=== PATIENT | female | born 1935 | race Caucasian/White ===

== ENCOUNTER → 2023-10-12 09:25 | Outpatient (REF) | payer OTHER, SELFPAY | LOC: WDC 09:25 | PROVIDERS: ATTENDING PHYSICIAN Family Medicine | DX: N63.41 Unspecified lump in right breast, subareolar (principal); N64.4 Mastodynia | CPT/HCPCS: 76642; 77062; 77066 ==

== ENCOUNTER → 2023-10-21 11:55 | Outpatient (REF) | payer OTHER, SELFPAY ==
--- NOTE | 2023-10-21 14:24 | OID.BR.INTR ---
[facility] Breast Navigator - Initial
- -
Date of Contact: 10/21/23
Met with patient. Patient given written information on navigator services and support services available at [facility]. Will follow up as needed per protocol.
== END ==
LOC: WDC 11:55
PROVIDERS: ATTENDING PHYSICIAN Family Medicine
DX: N63.20 Unspecified lump in the left breast, unspecified quadrant (principal); N63.21 Unspecified lump in the left breast, upper outer quadrant
CPT/HCPCS: 88305; 19083; 77065; A4648

== ENCOUNTER → 2024-05-03 13:49 | Outpatient (REF) | payer OTHER, SELFPAY | LOC: WDC 13:49 | PROVIDERS: ATTENDING PHYSICIAN Family Medicine | DX: R92.8 Other abnormal and inconclusive findings on diagnostic imaging of breast (principal) | CPT/HCPCS: 76642 ==

== ENCOUNTER 2024-07-28 21:10 | Emergency (ER) | payer OTHER, SELFPAY ==
--- NOTE | 2024-07-28 21:37 | ED.GENMED ---
ED Provider Triage
<Nick Rivera Jr., PA-C - Last Filed: 07/29/24 15:36>
-
Patient seen by provider in Triage?: Seen in Triage
Attestation: A medical screening examination has been initiated by a qualified medical provider. Based on the assessment performed at this time, it has been determined that an emergent medical condition may exist and the patient has been informed
that further medical evaluation and possible additional diagnostic testing may be needed.
HPI: 89-year-old female presenting to the emergency department with concerns of abrupt onset of nausea and vomiting prior to arrival. No specific diarrhea no additional specific symptoms otherwise. Feeling somewhat lethargic and weak at home as
well. Started over the past hour or so.
GENERAL: Alert , in no apparent distress
EYE: No visual abnormalities.
NECK: Trachea midline
ENT: No visible abnormalities.
LUNGS: No acute respiratory distress
NEUROLOGICAL: Alert and oriented
SKIN: Skin intact. No visible changes.
MUSCULOSKELETAL: Moving extremities normally
PSYCH: Normal and appropriate interaction.
This is a medical evaluation conducted in person to initiate diagnostic evaluation and provide initial therapeutics. Please see further documentation by the treating clinician.
History of Present Illness
<Nick Rivera Jr., PA-C - Last Filed: 07/29/24 15:36>
General
Chief Complaint: Dizziness
Time Seen by Provider: 07/29/24 00:56
<Caitlin Pate MD - Last Filed: 07/31/24 09:09>
General
Source: patient and spouse
History of Present Illness
History of Present Illness:
This patient is an 89-year-old female who says around 5 PM tonight she felt tired so she went to bed. She slept for bed and then got up approximately 8:30 PM to go to the bathroom noticed that the room was 'swimming' associated with several
episodes of nausea and vomiting. She called for her who in turn called for EMS. Symptoms lasted about 30 minutes and then resolved completely. Patient states she feels 'a lot better' now. She denies having any numbness, tingling, focal
weakness, double vision or change in vision, change in speech or aphasia, chest pain, shortness of breath, neck pain, headache, back pain, or other complaints. She is unclear if her symptoms were positional earlier today.
Past History
<Nick Rivera Jr., PA-C - Last Filed: 07/29/24 15:36>
Past History
ED Past Medical History: Other (Arthritis)
ED Past Surgical History: , Tonsilectomy and Other (Cataract surgery)
Social History
Tobacco: Non-smoker
<Caitlin Pate MD - Last Filed: 07/31/24 09:09>
Social History
Alcohol: None
Drug: None
Personal:
Living: with family
Phy Exam
<Caitlin Pate MD - Last Filed: 07/31/24 09:09>
Physical Exam
Physical Exam:
GENERAL: Alert , in no apparent distress
EYE: pupils equal and reactive, no photophobia, no nystagmus, EOMI
NECK: Supple, no significant adenopathy.
ENT: o/p clr, mmm.
CARDIAC: Regular rate and rhythm .
LUNGS: Clear breath sounds bilaterally, no acute respiratory distress, no wheezes/rales/rhonchi
ABDOMEN: Soft, without focal tenderness, no r/g, no cvat
NEUROLOGICAL: Alert and oriented, no focal neuro deficits, gait normal in ER, no truncal ataxia, normal Romberg, visual redman intact, [id number] normal, motor 5 out of 5, sensory intact, cranial nerves II through XII intact
SKIN: Warm and dry, skin intact.
MUSCULOSKELETAL: No edema, well perfused.
PSYCH: Normal and appropriate interaction.
Course
<Nick Rivera Jr., PA-C - Last Filed: 07/29/24 15:36>
Orders/Labs/Results
Orders:
Orders
07/28/24 21:37
Electrocardiogram (*1) Stat
Reason for Study: Abdominal Pain
EKG- Treatment ONCE
07/28/24 21:47
Complete Blood Count/With Diff Urgent
Comprehensive Metabolic Panel Urgent
Lipase Urgent
07/29/24 01:13
CT Head W/o Iv Contrast Urgent
Comment:
Reason For Exam: dizzy
Abnormal Lab Results
07/28/24
21:47
MCHC 32.9 L g/dL
(33.0-37.0)
Absolute Neuts (auto) 8.0 H 10^3/uL
(1.4-6.5)
Absolute Lymphs (auto) 0.9 L 10^3/uL
(1.2-3.4)
Neutrophils % 81.8 H %
(42.2-75.2)
Lymphocytes % 9.4 L %
(20.5-51.1)
BUN 18 H mg/dl
(7-17)
Glucose 179 H mg/dl
(70-99)
07/28/24 21:47
07/28/24 21:47
Vital Signs
Initial and Last Documented VS:
Initial Vital Signs
Temp Pulse Resp BP Pulse Ox
97.5 F 91 18 173/88 99
07/28/24 21:41 07/28/24 21:41 07/28/24 21:41 07/28/24 21:41 07/28/24 21:41
Last Documented Vital Signs
Temp Pulse Resp BP Pulse Ox
97.5 F 53 18 152/71 99
07/28/24 21:41 07/29/24 03:54 07/29/24 03:54 07/29/24 03:54 07/29/24 03:54
<Caitlin Pate MD - Last Filed: 07/31/24 09:09>
Orders/Labs/Results
Orders:
Orders
07/28/24 21:37
Electrocardiogram (*1) Stat
Reason for Study: Abdominal Pain
EKG- Treatment ONCE
07/28/24 21:47
Complete Blood Count/With Diff Urgent
Comprehensive Metabolic Panel Urgent
Lipase Urgent
07/29/24 01:13
CT Head W/o Iv Contrast Urgent
Comment:
Reason For Exam: dizzy
Abnormal Lab Results
07/28/24
21:47
MCHC 32.9 L g/dL
(33.0-37.0)
Absolute Neuts (auto) 8.0 H 10^3/uL
(1.4-6.5)
Absolute Lymphs (auto) 0.9 L 10^3/uL
(1.2-3.4)
Neutrophils % 81.8 H %
(42.2-75.2)
Lymphocytes % 9.4 L %
(20.5-51.1)
BUN 18 H mg/dl
(7-17)
Glucose 179 H mg/dl
(70-99)
07/28/24 21:47
07/28/24 21:47
Vital Signs
Initial and Last Documented VS:
Initial Vital Signs
Temp Pulse Resp BP Pulse Ox
97.5 F 91 18 173/88 99
07/28/24 21:41 07/28/24 21:41 07/28/24 21:41 07/28/24 21:41 07/28/24 21:41
Last Documented Vital Signs
Temp Pulse Resp BP Pulse Ox
97.5 F 53 18 152/71 99
07/28/24 21:41 07/29/24 03:54 07/29/24 03:54 07/29/24 03:54 07/29/24 03:54
<Caitlin Pate MD - Last Filed: 07/31/24 09:09>
*Critical Care Note
Total Time (30-74mins, 75-104mins- exclusive of procedures): Not Applicable
<Caitlin Pate MD - Last Filed: 07/31/24 09:09>
Update Note
Update Note:
Patient presents to the Emergency Department with dizziness nausea and vomiting
Number and Complexity of Problems Addressed at the Encounter
� Chronic conditions affecting care:
� Acute Exacerbation and/or Progression of Chronic Illness:
� Differential Diagnosis includes: But not limited to peripheral vertigo, central vertigo, electrolyte disorder, etc. etc.
Amount and/or Complexity of Data to be Reviewed and Analyzed
� I performed an independent evaluation of and my interpretation is:
EKG:read by me, sinus bradycardia, no acute ischemia
CT:read by vision, nad
Xrays:
Laboratory Studies:unremkarable
Other:
� Review of other/old records reveals:
� Clinical information was obtained by an independent historian:
� Prescriptions/Medications Considered but not given:
� Further testing considered but not performed:
Risk of Complications and/or Morbidity or Mortality of Patient Management
� Social determinants of health affecting care:
� Discussion with other providers (PCP, Hospitalists, Consultants, etc):
� Escalation of care including admission/observation vs risk of discharge considered: sxs very c/w episode of vertigo. No 'red flag' findings ot suggest central etiology...no focal neuro findings, no nystagmus (vertical or
otherwise), no dysmetria/diploplia etc etc. Recommend pt get close outpt f/u, and d/w them import of f/u and reasons to rted. Asx at this time.
ED Attending Note
<Nick Rivera Jr., PA-C - Last Filed: 07/29/24 15:36>
-
Portions of this chart may have been created with voice recognition software.� Occasional wrong word or��sound alike� substitutions may have occurred due to the inherent limitations of voice recognition software.
Discharge Plan
Departure
Patient Disposition: Home (Routine Discharge)
Date of Disposition: 07/29/24
Time of Disposition: 03:00
Patient with high blood pressure during this ER visit?: Yes
Condition: Good
Discharge Problem:
Vertigo
Instructions: Vertigo (a Type of Dizziness) (DC), BLOOD PRESSURE
Prescriptions:
No Action
ascorbic acid (vitamin C) [Vitamin C] 500 MG tablet
500 mg PO DAILY
vitamin B complex 1 TAB tablet
1 tab PO DAILY
calcium carbonate 600 MG tablet
600 mg PO DAILY
timolol maleate 1 DROP drops
1 drp BOTH EYES DAILY
cholecalciferol (vitamin D3) 1,000 UNITS tablet
1,000 units PO DAILY
lutein 20 MG tablet
20 mg PO DAILY
latanoprost (PF) 7.5 ML drops
1 drp BOTH EYES HS
mupirocin 1 APPLIC ointment
1 applic intranasal BID Qty: 1 0RF
sennosides [senna] 1 TABLET tablet
2 tab PO BID 0RF
acetaminophen 325 MG tablet
650 mg PO Q4HWA 0RF
aspirin 325 MG tablet
325 mg PO DAILY 0RF
magnesium hydroxide 30 ML suspension
30 ml PO DAILYPRN PRN (Reason: constipation) 0RF
famotidine 20 MG tablet
20 mg PO HS Qty: 30 0RF
polyethylene glycol 3350 238 GM powder
17 gm PO DAILY Qty: 1 0RF
methylprednisolone [Medrol (Reji)] 4 MG tablets,dose pack
4 tab PO . DIRECT Qty: 1 0RF
tramadol 50 MG tablet
50 mg PO Q6HPRN PRN (Reason: moderate-severe pain) Qty: 35 0RF
Rx Instructions:
1 tab moderate pain or 2 if pain severe
Dx joint replacement
ongoing therapy
Referrals:
Citlalli Wiseman DO [Family Provider] - Follow up in 2-3 days
Activity Restrictions/Additional Instructions:
IF YOU DEVELOP DIZZINESS, FEVER, CHEST PAIN, TROUBLE BREATHING, CHANGE IN VISION OR SPEECH, NUMBNESS, WEAKNESS, OR OTHER WORRISOME SIGNS, GO TO THE ER IMMEDIATELY!
Interventions
Interventions:
*ED COVID-19 Vaccine History Last Done: 07/29/24 01:45
*Nursing Disposition Last Done: 07/29/24 03:55
ED- Neurological Assessment Last Done: 07/29/24 01:45
Discharge Date and Time
Discharge Date/Time: 07/29/24 03:56
Print Language: UPPER SORBIAN
[2024-07-28 21:41] VITALS: BP 173/88
[2024-07-28 21:53] LABS: % Basophils 0.3 % (0-2); % Eosinophils 2.2 % (0-6); % Immature Granulocytes 0.3 % (0-0.5); % Lymphocytes 9.4 % (20.5-51.1); % Neutrophils 81.8 % (42.2-75.2); Absolute Eosinophils 0.2 10^3/uL (0-0.7); Absolute Lymphocytes 0.9 10^3/uL (1.2-3.4); Absolute Monocytes 0.6 10^3/uL (0.1-0.6); Hematocrit 42.6 % (37.0-47.0); Mean Corp Hgb Conc. 32.9 g/dL (33.0-37.0); Mean Corpuscular Hgb 30.1 pg (27.0-31.0); Mean Corpuscular Volume 91.6 fL (81.0-99.0); Mean Platelet Volume 9.6 fL (7.4-10.4); Nucleated Red Blood Cells % 0 %; Platelet Count 215 10^3/uL (130-400); Red Blood Cell Count 4.65 10^6/uL (4.20-5.40); Red Cell Dist. Width 14.3 % (11.5-14.5); White Blood Cell Count 9.8 10^3/uL (4.8-10.8)
[2024-07-28 22:07] LABS: ALT (SGPT) 23 U/L (0-35); AST (SGOT) 30 U/L (14-36); Alkaline Phosphatase 80 U/L (38-126); Blood Urea Nitrogen 18 mg/dl (7-17); Calcium 9.6 mg/dl (8.4-10.2); Carbon Dioxide 28 mmol/L (22-30); Chloride 103 mmol/L (98-107); Glucose 179 mg/dl (70-99); Lipase 104 U/L (23-300); Potassium 4.4 mmol/L (3.5-5.1); Sodium 136 mmol/L (135-145); Total Bilirubin 0.7 mg/dl (0.2-1.3); Total Protein 6.6 g/dl (6.3-8.2); eGFR > 60.00
[2024-07-29 00:30] VITALS: BP 154/66
[2024-07-29 03:54] VITALS: BP 152/71
== END 2024-07-29 03:56 | disposition home or self-care (01) ==
LOC: EMR 21:10
PROVIDERS: Physician Assistant; EMERGENCY PHYSICIAN Emergency Medicine; FAMILY PHYSICIAN Family Medicine
DX: R42 Dizziness and giddiness (principal); R11.2 Nausea with vomiting, unspecified; R53.83 Other fatigue; R53.1 Weakness; R03.0 Elevated blood-pressure reading, without diagnosis of hypertension; M19.90 Unspecified osteoarthritis, unspecified site; Z79.82 Long term (current) use of aspirin
CPT/HCPCS: 99284; 70450; 80053; 83690; 85025; 93005

== ENCOUNTER 2024-08-31 12:48 | Emergency (ER) | payer OTHER, SELFPAY ==
[2024-08-31 13:01] VITALS: BP 168/82
--- NOTE | 2024-08-31 13:24 | ED.GENMED ---
ED Provider Triage
<Kalie Glover PA-C - Last Filed: 08/31/24 13:25>
-
Patient seen by provider in Triage?: Seen in Triage
Attestation: A medical screening examination has been initiated by a qualified medical provider. Based on the assessment performed at this time, it has been determined that an emergent medical condition may exist and the patient has been informed
that further medical evaluation and possible additional diagnostic testing may be needed.
HPI: 89yoF here with dizziness and n/v that began at 9am. Was seen in the ED last month for vertigo and this feels similar but not as severe. No current dizziness. States she is mainly here because her had to check himself in as well.
GENERAL: Alert , in no apparent distress
EYE: No visual abnormalities.
NECK: Trachea midline
ENT: No visible abnormalities.
LUNGS: No acute respiratory distress
NEUROLOGICAL: Alert and oriented
SKIN: Skin intact. No visible changes.
MUSCULOSKELETAL: Moving extremities normally
PSYCH: Normal and appropriate interaction.
This is a medical evaluation conducted in person to initiate diagnostic evaluation and provide initial therapeutics. Please see further documentation by the treating clinician.
CBC, CMP, and EKG ordered. Will give ODT Zofran in triage.
History of Present Illness
<Kalie Glover PA-C - Last Filed: 08/31/24 13:25>
General
Chief Complaint: Abdominal Symptoms
Time Seen by Provider: 08/31/24 16:33
<Yoni England PA-C - Last Filed: 08/31/24 18:46>
History of Present Illness
History of Present Illness:
89-year-old female presents the emergency department for evaluation of vertigo and vomiting beginning this morning. She was awaiting her 's medical evaluation while he was the patient in the ER this morning when she began to feel increasing
vertigo and vomiting and thus checked then. She was given Zofran in the waiting room and states that her symptoms have since resolved. She awoke this morning with symptoms that began approximately 1 hour after waking up. She currently feels well
and denies complaints. No headache, vision changes, chest pain, shortness of breath. No recent viral illnesses.
Past History
<Kalie Glover PA-C - Last Filed: 08/31/24 13:25>
Past History
ED Past Medical History: Other (Arthritis)
ED Past Surgical History: , Tonsilectomy and Other (Cataract surgery)
Social History
Tobacco: Non-smoker
Alcohol: None
Drug: None
Personal:
Living: with family
Review of Systems
<Yoni England PA-C - Last Filed: 08/31/24 18:46>
Review of Systems
Allergies reviewed?: Yes
All Other Systems: ROS reviewed and negative except as documented in HPI and ROS
Phy Exam
<Yoni England PA-C - Last Filed: 08/31/24 18:46>
Physical Exam
Physical Exam:
GEN: Well appearing, NAD, WDWN
HEENT: Oral mucosa moist, no scleral icterus, no nasal congestion
Cardiac: Regular rate
Lung: No respiratory distress, no tachypnea
MSK: No gross deformity or injuries
Skin: Good color, no pallor or jaundice, no rashes
Neuro: AO x3; CN II-XII grossly intact. BUE strength 5/5 in all redman, sensation intact and symmetric. BLE strength 5/5 in all redman, sensation intact and symmetric. Shuffling gait, states this is normal due to prior hip replacements.
Appears generally weak and requires assist of 1
Psych: Calm, cooperative
Course
<Kalie Glover PA-C - Last Filed: 08/31/24 13:25>
Orders/Labs/Results
Orders:
Orders
08/31/24 13:03
Electrocardiogram (*1) Urgent
Reason for Study: Vertigo / Dizzy
EKG- Treatment ONCE
08/31/24 13:23
Complete Blood Count/With Diff Urgent
Comprehensive Metabolic Panel Urgent
Ondansetron Orally Disint [Zofran Odt (Orally Disintegrating)] 4 mg PO NOW STA
08/31/24 13:27
Ondansetron Orally Disint [Zofran Odt (Orally Disintegrating)] 4 mg .ROUTE .STK-MED ONE
08/31/24 16:56
0.9% Sodium Chloride 1000 ml [Nss] 1,000 ml IV BOLUS
Abnormal Lab Results
08/31/24
13:23
Absolute Lymphs (auto) 1.1 L 10^3/uL
(1.2-3.4)
Lymphocytes % 18.0 L %
(20.5-51.1)
Carbon Dioxide 31 H mmol/L
(22-30)
BUN 18 H mg/dl
(7-17)
Glucose 152 H mg/dl
(70-99)
08/31/24 13:23
08/31/24 13:23
Vital Signs
Initial and Last Documented VS:
Initial Vital Signs
Temp Pulse Resp BP Pulse Ox
97.8 F 64 16 168/82 98
08/31/24 13:01 08/31/24 13:01 08/31/24 13:01 08/31/24 13:01 08/31/24 13:01
Last Documented Vital Signs
Temp Pulse Resp BP Pulse Ox
97.8 F 64 16 168/82 98
08/31/24 13:01 08/31/24 13:01 08/31/24 13:01 08/31/24 13:01 08/31/24 13:01
<Yoni England PA-C - Last Filed: 08/31/24 18:46>
Orders/Labs/Results
Orders:
Orders
08/31/24 13:03
Electrocardiogram (*1) Urgent
Reason for Study: Vertigo / Dizzy
EKG- Treatment ONCE
08/31/24 13:23
Complete Blood Count/With Diff Urgent
Comprehensive Metabolic Panel Urgent
Ondansetron Orally Disint [Zofran Odt (Orally Disintegrating)] 4 mg PO NOW STA
08/31/24 13:27
Ondansetron Orally Disint [Zofran Odt (Orally Disintegrating)] 4 mg .ROUTE .STK-MED ONE
08/31/24 16:56
0.9% Sodium Chloride 1000 ml [Nss] 1,000 ml IV BOLUS
Abnormal Lab Results
08/31/24
13:23
Absolute Lymphs (auto) 1.1 L 10^3/uL
(1.2-3.4)
Lymphocytes % 18.0 L %
(20.5-51.1)
Carbon Dioxide 31 H mmol/L
(22-30)
BUN 18 H mg/dl
(7-17)
Glucose 152 H mg/dl
(70-99)
08/31/24 13:23
08/31/24 13:23
Vital Signs
Initial and Last Documented VS:
Initial Vital Signs
Temp Pulse Resp BP Pulse Ox
97.8 F 64 16 168/82 98
08/31/24 13:01 08/31/24 13:01 08/31/24 13:01 08/31/24 13:01 08/31/24 13:01
Last Documented Vital Signs
Temp Pulse Resp BP Pulse Ox
97.8 F 64 16 168/82 98
08/31/24 13:01 08/31/24 13:01 08/31/24 13:01 08/31/24 13:01 08/31/24 13:01
<Yoni England PA-C - Last Filed: 08/31/24 18:46>
MDM/Problems Addressed
MDM/Problems Addressed:
Patient insists her symptoms have improved. She does appear generally weak and is likely hypovolemic due to vomiting today. I did order IV fluids however nursing was unable to place IV access. After a period of time of unsuccessful IV tries the
patient and her refused further care. I did offer to place an ultrasound-guided IV myself and administer fluids however the states 'we are done'. Patient will go home and hydrate orally, at this time she has not had vomiting for
several hours. Given the positional nature of her symptoms I do not see indication for CT of the head particularly given the reassuring neurologic exam and lack of any signs of cerebrovascular syndrome.
<Yoni England PA-C - Last Filed: 08/31/24 18:46>
*Critical Care Note
Total Time (30-74mins, 75-104mins- exclusive of procedures): Not Applicable
ED Attending Note
<Kalie Glover PA-C - Last Filed: 08/31/24 13:25>
-
Portions of this chart may have been created with voice recognition software.� Occasional wrong word or��sound alike� substitutions may have occurred due to the inherent limitations of voice recognition software.
Discharge Plan
Departure
Patient Disposition: Home (Routine Discharge)
Date of Disposition: 08/31/24
Time of Disposition: 18:19
Patient with high blood pressure during this ER visit?: No
Discharge Problem:
Vertigo
Instructions: Nausea and Vomiting, Adult (DC)
Prescriptions:
New
ondansetron 4 mg tablet,disintegrating
4 mg PO TIDPRN PRN (Reason: nausea/vomiting) Qty: 10 0RF
No Action
ascorbic acid (vitamin C) [Vitamin C] 500 MG tablet
500 mg PO DAILY
vitamin B complex 1 TAB tablet
1 tab PO DAILY
calcium carbonate 600 MG tablet
600 mg PO DAILY
timolol maleate 1 DROP drops
1 drp BOTH EYES DAILY
cholecalciferol (vitamin D3) 1,000 UNITS tablet
1,000 units PO DAILY
lutein 20 MG tablet
20 mg PO DAILY
latanoprost (PF) 7.5 ML drops
1 drp BOTH EYES HS
mupirocin 1 APPLIC ointment
1 applic intranasal BID Qty: 1 0RF
sennosides [senna] 1 TABLET tablet
2 tab PO BID 0RF
acetaminophen 325 MG tablet
650 mg PO Q4HWA 0RF
aspirin 325 MG tablet
325 mg PO DAILY 0RF
magnesium hydroxide 30 ML suspension
30 ml PO DAILYPRN PRN (Reason: constipation) 0RF
famotidine 20 MG tablet
20 mg PO HS Qty: 30 0RF
polyethylene glycol 3350 238 GM powder
17 gm PO DAILY Qty: 1 0RF
methylprednisolone [Medrol (Reji)] 4 MG tablets,dose pack
4 tab PO . DIRECT Qty: 1 0RF
tramadol 50 MG tablet
50 mg PO Q6HPRN PRN (Reason: moderate-severe pain) Qty: 35 0RF
Rx Instructions:
1 tab moderate pain or 2 if pain severe
Dx joint replacement
ongoing therapy
Referrals:
Fox Roth, [Family Provider] -
Activity Restrictions/Additional Instructions:
Do not hesitate to return if symptoms worsen
Interventions
Interventions:
*Risk Screen - Suicide Last Done: 08/31/24 13:01
*General Assessment Last Done: 08/31/24 17:48
*Neglect/Abuse Screening Last Done: 08/31/24 13:01
ED- Fall Risk Assessment Last Done: 08/31/24 17:48
*ED COVID-19 Vaccine History Last Done: 08/31/24 17:48
*Nursing Disposition Last Done: 08/31/24 18:23
EA-Fwnfua-Jfmjextozl Assessment Last Done: 08/31/24 17:48
Discharge Date and Time
Discharge Date/Time: 08/31/24 18:24
Print Language: NEPALI
[2024-08-31] MEDS: ZOFRAN ODT (ORALLY DISINTEGRATING) 4 MG PO (13:28)
[2024-08-31 13:40] LABS: % Basophils 0.2 % (0-2); % Eosinophils 0.5 % (0-6); % Immature Granulocytes 0.3 % (0-0.5); Absolute Lymphocytes 1.1 10^3/uL (1.2-3.4); Absolute Monocytes 0.4 10^3/uL (0.1-0.6); Absolute Neutrophils 4.4 10^3/uL (1.4-6.5); Hematocrit 43.5 % (37.0-47.0); Hemoglobin 14.5 g/dL (12.0-16.0); Mean Corp Hgb Conc. 33.3 g/dL (33.0-37.0); Mean Corpuscular Hgb 29.9 pg (27.0-31.0); Mean Corpuscular Volume 89.7 fL (81.0-99.0); Mean Platelet Volume 9.5 fL (7.4-10.4); Nucleated Red Blood Cells % 0 %; Platelet Count 183 10^3/uL (130-400); Red Blood Cell Count 4.85 10^6/uL (4.20-5.40); Red Cell Dist. Width 13.9 % (11.5-14.5); White Blood Cell Count 5.9 10^3/uL (4.8-10.8)
[2024-08-31 13:49] LABS: ALT (SGPT) 18 U/L (0-35); AST (SGOT) 26 U/L (14-36); Albumin 4.3 g/dl (3.5-5.0); Alkaline Phosphatase 74 U/L (38-126); Blood Urea Nitrogen 18 mg/dl (7-17); Carbon Dioxide 31 mmol/L (22-30); Chloride 102 mmol/L (98-107); Glucose 152 mg/dl (70-99); Potassium 4.3 mmol/L (3.5-5.1); Sodium 138 mmol/L (135-145); Total Bilirubin 1.2 mg/dl (0.2-1.3); Total Protein 6.7 g/dl (6.3-8.2); eGFR > 60.00
[2024-08-31 17:48] VITALS: BMI 24.5
== END 2024-08-31 18:24 | disposition home or self-care (01) ==
LOC: EMR 12:48
PROVIDERS: Emergency Medicine; EMERGENCY PHYSICIAN Student in an Organized Health Care Education/Training Program; FAMILY PHYSICIAN Emergency Medicine
DX: R42 Dizziness and giddiness (principal); R11.2 Nausea with vomiting, unspecified
CPT/HCPCS: 99284; 80053; 85025; 93005